=== PATIENT | female | born 1975 | race Caucasian/White ===

== ENCOUNTER 2022-05-27 01:26 | Observation (INO) | payer BC ==
[2022-05-27] MEDS ORDERED: MORPHINE SULFATE 4 MG/ML SYRINGE IV STA (02:23)
[2022-05-27] MEDS ORDERED: VANCOMYCIN IV PER PHARMACY 1 EACH MISC MISCELLANE PRN (02:25)
[2022-05-27] MEDS ORDERED: AMPICILLIN-SULBACTAM 3 GM in SODIUM CHLORIDE 0.9% 100 ML IVPB STA (02:25)
[2022-05-27] MEDS ORDERED: SODIUM CHLORIDE 0.9% 1,000 ML IV ONE (02:39)
[2022-05-27] MEDS ORDERED: VANCOMYCIN 1,750 MG in SODIUM CHLORIDE 0.9% 500 ML 500 ML IVPB ONE (02:45)
[2022-05-27 03:09] LABS: Basophils % (A) 0 %; Eosinophils # (A) 0.4 k/uL (0-0.7); Eosinophils % (A) 3 %; HCT 34.7 % (34.0-46.0); HGB 11.9 gm/dL (11.4-16.0); Lymphocytes # (A) 1.2 k/uL (1.0-4.8); Lymphocytes % (A) 8 %; MCH 32.2 pg (25.0-35.0); MCHC 34.4 g/dL (31.0-37.0); MCV 93.5 fL (80.0-100.0); Monocytes % (A) 7 %; Neutrophils # (A) 12.2 k/uL (1.3-7.7); Neutrophils % (A) 82 %; Platelet Count 439 k/uL (150-450); RBC 3.71 m/uL (3.80-5.40); RDW 13.2 % (11.5-15.5); WBC 14.9 k/uL (3.8-10.6)
[2022-05-27 03:19] LABS: ALT 14 U/L (4-34); AST 19 U/L (14-36); African American GFR (CKD) >90 (>60 ml/min/1.73 sqM); Albumin 3.6 g/dL (3.5-5.0); Alkaline Phosphatase 103 U/L (38-126); Anion Gap 9 mmol/L; Blood Urea Nitrogen 12 mg/dL (7-17); Calcium 8.8 mg/dL (8.4-10.2); Carbon Dioxide 28 mmol/L (22-30); Chloride 102 mmol/L (98-107); Glucose 126 mg/dL (74-99); Non-African American GFR(CKD) >90 (>60 ml/min/1.73 sqM); Potassium 3.2 mmol/L (3.5-5.1); Sodium 139 mmol/L (137-145); Total Bilirubin 0.2 mg/dL (0.2-1.3); Total Protein 6.6 g/dL (6.3-8.2)
[2022-05-27] MEDS: SODIUM CHLORIDE 0.9% 1,000 ML IV SCH ×3 (03:23→18:22)
[2022-05-27] MEDS ORDERED: MORPHINE SULFATE 4 MG/ML SYRINGE IV PRN (03:34)
[2022-05-27] MEDS ORDERED: NALOXONE 0.4 MG/ML 1 ML VIAL IV PRN (03:34)
[2022-05-27] MEDS ORDERED: KETOROLAC 15 MG/ML 1 ML VIAL IVP PRN (03:34)
--- NOTE | 2022-05-27 03:37 | ED ---
Skin/Abscess/FB HPI - General Source: patient Mode of arrival: ambulatory Limitations: no limitations <Peggy Bella - Last Filed: 05/27/22 04:44> <Ally Torre - Last Filed: 05/28/22 23:31> - General Chief complaint: Skin/Abscess/Foreign Body Stated complaint: lump/abscess on breast Time Seen by Provider: 05/27/22 02:08 - History of Present Illness Initial comments: Patient is a 47 y/o female presenting with CC of breast abscess. Patient noticed a bump to her breast a few days ago, she states that it grew quickly, she was seen by her PCP who started her on antibiotics yesterday. Patient states that today the abscess opened up and started draining. It is approximately 8 cm x 5 cm, located on the right breast. No fever or chills. No chest pain or difficulty breathing. No nausea or vomiting or abdominal pain. No numbness or tingling. Drainage is purulent, brown and foul smelling. (Peggy Bella) - Related Data Home Medications Medication Instructions Recorded Confirmed Cephalexin [Keflex] 500 mg PO BID 05/27/22 05/27/22 Allergies Allergy/AdvReac Type Severity Reaction Status Date / Time No Known Allergies Allergy Verified 05/27/22 06:52 Review of Systems ROS Other: All systems not noted in ROS Statement are negative. <Peggy Bella - Last Filed: 05/27/22 04:44> ROS Other: All systems not noted in ROS Statement are negative. <Ally Torre - Last Filed: 05/28/22 23:31> ROS Statement: Those systems with pertinent positive or pertinent negative responses have been documented in the HPI. Past Medical History Past Medical History: No Reported History History of Any Multi-Drug Resistant Organisms: None Reported Past Surgical History: Appendectomy, Section Past Psychological History: No Psychological Hx Reported Smoking Status: Current every day smoker Past Alcohol Use History: Occasional Past Drug Use History: None Reported <Peggy Bella - Last Filed: 05/27/22 04:44> General Exam Limitations: no limitations General appearance: alert, in no apparent distress Head exam: Present: atraumatic, normocephalic, normal inspection Eye exam: Present: normal appearance, PERRL, EOMI. Absent: scleral icterus, conjunctival injection, periorbital swelling Neck exam: Present: normal inspection Respiratory exam: Present: normal lung sounds bilaterally. Absent: respiratory distress, wheezes, rales, rhonchi, stridor Cardiovascular Exam: Present: regular rate, normal rhythm, normal heart sounds. Absent: systolic murmur, diastolic murmur, rubs, gallop, clicks Neurological exam: Present: alert, oriented X3, CN II-XII intact Psychiatric exam: Present: normal affect, normal mood Expanded Type of lesion: Present: abscess (Lateral right breast, measuring approximately 8 cm x 5 cm, actively draining purulent fluid) <Peggy Bella - Last Filed: 05/27/22 04:44> Course Vital Signs 05/27/22 05/27/22 05/27/22 01:37 02:12 03:42 Temperature 98.4 F 97.7 F Pulse Rate 115 H 100 78 Respiratory 18 16 16 Rate Blood Pressure 133/105 134/86 111/87 O2 Sat by Pulse 98 100 99 Oximetry 05/27/22 05/27/22 05/27/22 04:04 05:14 06:10 Temperature 98.1 F 97.9 F Pulse Rate 68 72 Respiratory 16 16 16 Rate Blood Pressure 116/66 111/79 O2 Sat by Pulse 99 98 Oximetry 05/27/22 05/27/22 05/27/22 06:23 07:07 11:00 Temperature Pulse Rate 73 72 Respiratory 16 16 18 Rate Blood Pressure 111/72 126/83 120/76 O2 Sat by Pulse 99 98 97 Oximetry 05/27/22 05/27/22 16:00 16:55 Temperature 98.5 F 98.5 F Pulse Rate 89 89 Respiratory 19 18 Rate Blood Pressure 121/83 124/90 O2 Sat by Pulse 99 97 Oximetry Medical Decision Making - Lab Data Result diagrams: 05/27/22 02:51 05/27/22 02:51 <Peggy Bella - Last Filed: 05/27/22 04:44> - Lab Data Result diagrams: 05/28/22 08:18 05/28/22 08:18 <Ally Torre - Last Filed: 05/28/22 23:31> - Medical Decision Making Patient is a 47-year-old female presenting with chief complaint of abscess to the right breast. Abscess began a few days ago, patient states he grew quickly. Patient started taking oral antibiotics yesterday, she states that today the abscess opened up and started draining. On examination the area is warm, with surrounding areas of induration. Brown foul-smelling drainage is present. WBC 14.9. Blood cultures and wound culture are taken, patient is started on vancomycin and Unasyn. Potassium is 3.2, provided oral replacement. Patient will be admitted for IV antibiotics and surgical consultation. I discussed this case with Dr. Templeton who agreed to admit the patient. Patient is agreeable with this plan. I discussed this case with my attending Dr. Torre. (Peggy Bella) - Lab Data Lab Results 05/27/22 05/27/22 05/27/22 Range/Units 02:51 02:51 02:51 WBC 14.9 H (3.8-10.6) k/uL RBC 3.71 L (3.80-5.40) m/uL Hgb 11.9 (11.4-16.0) gm/dL Hct 34.7 (34.0-46.0) % MCV 93.5 (80.0-100.0) fL MCH 32.2 (25.0-35.0) pg MCHC 34.4 (31.0-37.0) g/dL RDW 13.2 (11.5-15.5) % Plt Count 439 (150-450) k/uL MPV 8.0 Neutrophils % 82 % Lymphocytes % 8 % Monocytes % 7 % Eosinophils % 3 % Basophils % 0 % Neutrophils # 12.2 H (1.3-7.7) k/uL Lymphocytes # 1.2 (1.0-4.8) k/uL Monocytes # 1.0 (0-1.0) k/uL Eosinophils # 0.4 (0-0.7) k/uL Basophils # 0.0 (0-0.2) k/uL Sodium 139 (137-145) mmol/L Potassium 3.2 L (3.5-5.1) mmol/L Chloride 102 (98-107) mmol/L Carbon Dioxide 28 (22-30) mmol/L Anion Gap 9 mmol/L BUN 12 (7-17) mg/dL Creatinine 0.63 (0.52-1.04) mg/dL Est GFR (CKD-EPI)AfAm >90 (>60 ml/min/1.73 sqM) Est GFR (CKD-EPI)NonAf >90 (>60 ml/min/1.73 sqM) Glucose 126 H (74-99) mg/dL Estimated Ave Glu mg/dL Hemoglobin A1c (0.0-6.0) % Plasma Lactic Acid Dario 0.8 (0.7-2.0) mmol/L Calcium 8.8 (8.4-10.2) mg/dL Total Bilirubin 0.2 (0.2-1.3) mg/dL AST 19 (14-36) U/L ALT 14 (4-34) U/L Alkaline Phosphatase 103 (38-126) U/L Total Protein 6.6 (6.3-8.2) g/dL Albumin 3.6 (3.5-5.0) g/dL 05/27/22 Range/Units 02:51 WBC (3.8-10.6) k/uL RBC (3.80-5.40) m/uL Hgb (11.4-16.0) gm/dL Hct (34.0-46.0) % MCV (80.0-100.0) fL MCH (25.0-35.0) pg MCHC (31.0-37.0) g/dL RDW (11.5-15.5) % Plt Count (150-450) k/uL MPV Neutrophils % % Lymphocytes % % Monocytes % % Eosinophils % % Basophils % % Neutrophils # (1.3-7.7) k/uL Lymphocytes # (1.0-4.8) k/uL Monocytes # (0-1.0) k/uL Eosinophils # (0-0.7) k/uL Basophils # (0-0.2) k/uL Sodium (137-145) mmol/L Potassium (3.5-5.1) mmol/L Chloride (98-107) mmol/L Carbon Dioxide (22-30) mmol/L Anion Gap mmol/L BUN (7-17) mg/dL Creatinine (0.52-1.04) mg/dL Est GFR (CKD-EPI)AfAm (>60 ml/min/1.73 sqM) Est GFR (CKD-EPI)NonAf (>60 ml/min/1.73 sqM) Glucose (74-99) mg/dL Estimated Ave Glu mg/dL 112 Hemoglobin A1c 5.5 (0.0-6.0) % Plasma Lactic Acid Dario (0.7-2.0) mmol/L Calcium (8.4-10.2) mg/dL Total Bilirubin (0.2-1.3) mg/dL AST (14-36) U/L ALT (4-34) U/L Alkaline Phosphatase (38-126) U/L Total Protein (6.3-8.2) g/dL Albumin (3.5-5.0) g/dL Disposition Time of Disposition: 03:36 Decision to Admit Reason: Admit from EC Decision Date: 05/27/22 Decision Time: 03:36 <Peggy Bella - Last Filed: 05/27/22 04:44> <Ally Torre - Last Filed: 05/28/22 23:31> Clinical Impression: Breast abscess Disposition: ADMITTED IP TO THIS [facility] Condition: Fair
[2022-05-27] MEDS ORDERED: Potassium Replacement Protocol 1 EACH MISC MISCELLANE PRN (03:43)
[2022-05-27] MEDS: POTASSIUM CHLORIDE ER 20 MEQ TAB.ER PO SCH ×2 (04:03→05:14)
[2022-05-27] MEDS: AMPICILLIN-SULBACTAM 3 GM in SODIUM CHLORIDE 0.9% 100 ML IVPB SCH ×3 (09:53→21:56)
[2022-05-27] MEDS: VANCOMYCIN 1,750 MG in SODIUM CHLORIDE 0.9% 500 ML 500 ML IVPB SCH ×2 (11:27→18:20)
--- NOTE | 2022-05-27 13:58 | P.GSCN ---
History of Present Illness Consult date: 05/27/22 History of present illness: CHIEF COMPLAINT: Right breast abscess HISTORY OF PRESENT ILLNESS: This is a 47-year-old female who presents to the hospital with complaints of right breast abscess. She reports over the last 2 weeks she's had increase pain and swelling in the right breast. Initially she had a lump on the right breast that was red and painful. Over the last couple weeks she's had increased pain and redness. She reports seeing her PCP was started on oral antibiotics which she took 2 doses. I she continued to have increasing pain presented to the ER for further evaluation. Patient reports that the abscess did start to drain since being in the ER. The drainage has very foul odor. Patient does report decrease in pain since abscess started draining. Patient denies any fever chills or sweats. She has had a lumpectomy on her left breast. She denies any history of MRSA or diabetes. She is afebrile. Patient seen and examined with Dr. christie PAST MEDICAL HISTORY: See list. PAST SURGICAL HISTORY: See list. MEDICATIONS: See list. ALLERGIES: See list. SOCIAL HISTORY: No illicit drug use. REVIEW OF SYSTEMS: CONSTITUTIONAL: Denies fever or chills. HEENT: Denies blurred vision, vision changes, or eye pain. Denies hemoptysis CARDIOVASCULAR: Denies chest pain or pressure. RESPIRATORY: No shortness of breath. GASTROINTESTINAL: See HPI for pertinent findings HEMATOLOGIC: Denies bleeding disorders. GENITOURINARY: Denies any blood in urine or increased urinary frequency. SKIN: Denies pruitis. Denies rash. PHYSICAL EXAM: VITAL SIGNS: Reviewed GENERAL: Well-developed in no acute distress. HEENT: No sclera icterus. Extraocular movements grossly intact. Moist buccal mucosa. Head is atraumatic, normocephalic. No nasal drainage. ABDOMEN: Soft. Nondistended. Nontender NEUROLOGIC: Alert and oriented. Cranial nerves II through XII grossly intact. Skin: Right breast, area of induration then under side of the breast measuring about 5cm in lenth with purulent foul-smelling drainage. There is a small area of bruised skin where the drainage is expelling from. There is a large area of erythema mostly underside of the breast. It's warm and tender with palpation. LABORATORY DATA: WBC 14.9 Hgb 11.9 platelets 439 Sodium 139 potassium is 3.2 crit and serum 0.63 glucose 126 LFTs normal Culture pending IMAGING: ASSESSMENT: 1. Right breast abscess with cellulitis PLAN: -Continue to observe -Cellulitis area has been marked -Follow up on culture -Continue antibiotics -Continue supportive care Physician [employer] note has been reviewed by physician. Signing provider agrees with the documented findings, assessment, and plan of care. Past Medical History Past Medical History: No Reported History History of Any Multi-Drug Resistant Organisms: None Reported Past Surgical History: Appendectomy, Section Past Psychological History: No Psychological Hx Reported Smoking Status: Current every day smoker Past Alcohol Use History: Occasional Past Drug Use History: None Reported Medications and Allergies Home Medications Medication Instructions Recorded Confirmed Type Cephalexin [Keflex] 500 mg PO BID 05/27/22 05/27/22 History Allergies Allergy/AdvReac Type Severity Reaction Status Date / Time No Known Allergies Allergy Verified 05/27/22 06:52 Surgical - Exam Vital Signs Temp Pulse Resp BP Pulse Ox 98.4 F 115 H 18 133/105 98 05/27/22 01:37 05/27/22 01:37 05/27/22 01:37 05/27/22 01:37 05/27/22 01:37 Results - Labs 05/27/22 02:51 05/27/22 02:51 Abnormal Lab Results - Last 24 Hours (Table) 05/27/22 05/27/22 Range/Units 02:51 02:51 WBC 14.9 H (3.8-10.6) k/uL RBC 3.71 L (3.80-5.40) m/uL Neutrophils # 12.2 H (1.3-7.7) k/uL Potassium 3.2 L (3.5-5.1) mmol/L Glucose 126 H (74-99) mg/dL Diabetes panel 05/27/22 Range/Units 02:51 Sodium 139 (137-145) mmol/L Potassium 3.2 L (3.5-5.1) mmol/L Chloride 102 (98-107) mmol/L Carbon Dioxide 28 (22-30) mmol/L BUN 12 (7-17) mg/dL Creatinine 0.63 (0.52-1.04) mg/dL Glucose 126 H (74-99) mg/dL Calcium 8.8 (8.4-10.2) mg/dL AST 19 (14-36) U/L ALT 14 (4-34) U/L Alkaline Phosphatase 103 (38-126) U/L Total Protein 6.6 (6.3-8.2) g/dL Albumin 3.6 (3.5-5.0) g/dL Calcium panel 05/27/22 Range/Units 02:51 Calcium 8.8 (8.4-10.2) mg/dL Albumin 3.6 (3.5-5.0) g/dL Pituitary panel 05/27/22 Range/Units 02:51 Sodium 139 (137-145) mmol/L Potassium 3.2 L (3.5-5.1) mmol/L Chloride 102 (98-107) mmol/L Carbon Dioxide 28 (22-30) mmol/L BUN 12 (7-17) mg/dL Creatinine 0.63 (0.52-1.04) mg/dL Glucose 126 H (74-99) mg/dL Calcium 8.8 (8.4-10.2) mg/dL Adrenal panel 05/27/22 Range/Units 02:51 Sodium 139 (137-145) mmol/L Potassium 3.2 L (3.5-5.1) mmol/L Chloride 102 (98-107) mmol/L Carbon Dioxide 28 (22-30) mmol/L BUN 12 (7-17) mg/dL Creatinine 0.63 (0.52-1.04) mg/dL Glucose 126 H (74-99) mg/dL Calcium 8.8 (8.4-10.2) mg/dL Total Bilirubin 0.2 (0.2-1.3) mg/dL AST 19 (14-36) U/L ALT 14 (4-34) U/L Alkaline Phosphatase 103 (38-126) U/L Total Protein 6.6 (6.3-8.2) g/dL Albumin 3.6 (3.5-5.0) g/dL
--- NOTE | 2022-05-27 14:38 | P.HPIM ---
History of Present Illness H&P Date: 05/27/22 Chief Complaint: Right breast abscess draining This is a 47-year-old female presented to the ER with complaints of right breast abscess-draining. Reports she noticed it a couple weeks ago, established a primary physician last week-had not seen a doctor in years, started on a ntibiotics, breast site became more swollen with increased redness and edemawith drainage starting on arrival to ER. Denies nausea vomiting or diarrhea. Denies abdominal pain. Denies headache. Denies pain. Past medical history includes left lumpectomy, ongoing nicotine dependence, obesity and multiple other medical issues. Denies history of diabetes mellitus, CAD/TX/hypertension, CVA/TIA. A febrile, WBC 14.9. Lactic acid 0.8. Glucose 126. Wound and blood cultures obtained. Vancomycin and Unasyn initiated. Potassium 3.2. Renal function stable. Denies chest pain, palpitations or shortness of breath. Past Medical History Past Medical History: No Reported History History of Any Multi-Drug Resistant Organisms: None Reported Past Surgical History: Appendectomy, Section Past Psychological History: No Psychological Hx Reported Smoking Status: Current every day smoker Past Alcohol Use History: Occasional Past Drug Use History: None Reported Medications and Allergies Home Medications Medication Instructions Recorded Confirmed Type Cephalexin [Keflex] 500 mg PO BID 05/27/22 05/27/22 History Allergies Allergy/AdvReac Type Severity Reaction Status Date / Time No Known Allergies Allergy Verified 05/27/22 06:52 Physical Exam Vitals: Vital Signs Temp Pulse Resp BP Pulse Ox 05/27/22 11:00 72 18 120/76 97 05/27/22 07:07 73 16 126/83 98 05/27/22 06:23 16 111/72 99 05/27/22 06:10 16 05/27/22 05:14 97.9 F 72 16 111/79 98 05/27/22 04:04 98.1 F 68 16 116/66 99 05/27/22 03:42 78 16 111/87 99 05/27/22 02:12 97.7 F 100 16 134/86 100 05/27/22 01:37 98.4 F 115 H 18 133/105 98 Intake and Output 05/26/22 05/27/22 05/27/22 22:59 06:59 14:59 Other: Weight 108.862 kg PHYSICAL EXAM: VITAL SIGNS: [As above] GENERAL: Sitting up in bed, no acute distress HEENT: Conjunctivae normal. eyes normal. NECK: No JVD. No thyroid enlargement. No LNs CARDIOVASCULAR: S1, S2 regular. No murmur RESPIRATION: Breath sounds diminished in the bases. No rhonchi or crackles. No bronchial breathing. ABDOMEN: Soft, nontender . No guarding. no masses palpable. No ascites, No hepatosplenomegaly.Bowel sounds heard. LEGS: No edema. no swelling PSYCHIATRY: Alert and oriented X3, mood and affect normal. NERVOUS SYSTEM: Cranial N 2-12 grossly normal. No focal deficits. Strength and sensation grossly intact.. Skin: Right lateral breast, tender, reddened, positive induration and fluctuance with purulent foul-smelling drainage. Refer to nursing wound measurement documentation. Results CBC & Chem 7: 05/27/22 02:51 05/27/22 02:51 Labs: Abnormal Lab Results - Last 24 Hours (Table) 05/27/22 05/27/22 Range/Units 02:51 02:51 WBC 14.9 H (3.8-10.6) k/uL RBC 3.71 L (3.80-5.40) m/uL Neutrophils # 12.2 H (1.3-7.7) k/uL Potassium 3.2 L (3.5-5.1) mmol/L Glucose 126 H (74-99) mg/dL Microbiology - Last 24 Hours (Table) 05/27/22 02:51 Wound Culture - Preliminary Breast - Right Assessment and Plan Assessment: Right breast abscess with cellulitis Hypokalemia Ongoing nicotine dependence Obesity, BMI 35.4 Plan: Continue on current medication regime ,monitoring and symptomatic treatment. Maintain IV antibiotics, cultures in progress with infectious diseas e and general surgery consult in place. Potassium replacement as per protocol ordered. Nicotine cessation reinforced. Hemoglobin A1c ordered. The impression and plan of care has been dictated as directed. : I performed a history and examination of this patient, discussed the same with the dictator. I agree with the dictator's note ,documented as a scribe. Any additional findings or plans will be noted.
[2022-05-27] MEDS: PANTOPRAZOLE 40 MG/10 ML VIAL IVP SCH (15:55)
[2022-05-28] MEDS: VANCOMYCIN 1,750 MG in SODIUM CHLORIDE 0.9% 500 ML 500 ML IVPB SCH ×2 (01:32→10:39)
[2022-05-28] MEDS: AMPICILLIN-SULBACTAM 3 GM in SODIUM CHLORIDE 0.9% 100 ML IVPB SCH ×4 (03:46→21:01)
[2022-05-28] MEDS: SODIUM CHLORIDE 0.9% 1,000 ML IV SCH ×3 (03:46→18:23)
[2022-05-28 08:38] LABS: Basophils % (A) 0 %; Eosinophils # (A) 0.2 k/uL (0-0.7); Eosinophils % (A) 2 %; HCT 32.8 % (34.0-46.0); HGB 10.8 gm/dL (11.4-16.0); Hypochromasia Slight; Lymphocytes # (A) 1.3 k/uL (1.0-4.8); Lymphocytes % (A) 15 %; MCH 31.1 pg (25.0-35.0); MCV 94.4 fL (80.0-100.0); Mean Platelet Volume 8.4; Monocytes # (A) 0.6 k/uL (0-1.0); Monocytes % (A) 7 %; Neutrophils # (A) 6.5 k/uL (1.3-7.7); Neutrophils % (A) 75 %; Platelet Count 412 k/uL (150-450); RBC 3.47 m/uL (3.80-5.40); RDW 13.1 % (11.5-15.5); WBC 8.8 k/uL (3.8-10.6)
[2022-05-28] MEDS ORDERED: VANCOMYCIN TROUGH DUE 1 EACH MISC MISCELLANE ONE (09:00)
--- NOTE | 2022-05-28 09:05 | P.CONS ---
History of Present Illness - Reason for Consult Consult date: 05/27/22 Breast abscess Requesting physician: Rachel Ochoa - Chief Complaint Right breast pain and swelling x few days - History of Present Illness Patient is a 47-year-old female presented to the hospital earlier this morning for evaluation of right breast swelling and redness patient mention she noticed a bump on her right breast few days ago that has quickly gotten bigger in size patient was evaluated by her primary care physician yesterday and started on oral Keflex twice a day however the patient mention her area becoming more swollen red opened up and started to drain patient be complaining of pain to the right breast area dull aching to throbbing intensity is almost 7-8 out of 10 and no radiation with associated swelling redness and some foul-smelling d rainage with the symptom the patient present to the hospital on arrival to the ER the patient was afebrile and no fever has been recorded subsequently patient did have white count of 14.9 with a left shift creatinine has been normal liver enzymes are normal blood and local culture has been obtained which are currently pending patient was started on vancomycin and Unasyn infectious disease was cons ulted for further management of antibiotic therapy Review of Systems Positive point has been mentioned in the HPI rest of the systems are negative Past Medical History Past Medical History: No Reported History History of Any Multi-Drug Resistant Organisms: None Reported Past Surgical History: Appendectomy, Section Past Psychological History: No Psychological Hx Reported Smoking Status: Current every day smoker Past Alcohol Use History: Occasional Past Drug Use History: None Reported Medications and Allergies Home Medications Medication Instructions Recorded Confirmed Type Amoxic-Pot Clav 875-125Mg 1 tab PO BID 14 Days #28 tab 05/29/22 Rx [Augmentin 875-125] Allergies Allergy/AdvReac Type Severity Reaction Status Date / Time No Known Allergies Allergy Verified 05/27/22 06:52 Physical Exam Vitals: Vital Signs Temp Pulse Resp BP Pulse Ox 05/27/22 11:00 72 18 120/76 97 05/27/22 07:07 73 16 126/83 98 05/27/22 06:23 16 111/72 99 05/27/22 06:10 16 05/27/22 05:14 97.9 F 72 16 111/79 98 05/27/22 04:04 98.1 F 68 16 116/66 99 05/27/22 03:42 78 16 111/87 99 05/27/22 02:12 97.7 F 100 16 134/86 100 05/27/22 01:37 98.4 F 115 H 18 133/105 98 Intake and Output 05/27/22 05/27/22 05/27/22 06:59 14:59 22:59 Other: Weight 108.862 kg GENERAL DESCRIPTION: Middle-aged female lying in bed, no distress. No tachypnea or accessory muscle of respiration use. HEENT: Shows Pallor , no scleral icterus. Oral mucous membrane is dry. No pharyngeal erythema or thrush NECK: Trachea central, no thyromegaly. LUNGS: Unlabored breathing. Clear to auscultation anteriorly. No wheeze or crackle. HEART: S1, S2, regular rate and rhythm. No loud murmur ABDOMEN: Soft, no tenderness , guarding or rigidity, no organomegaly EXTREMITIES: No edema of feet. SKIN: No rash, no masses palpable. Right breast is swollen and red and ind urated with some drainage NEUROLOGICAL: The patient is awake, alert, oriented x3, mood and affect normal. Results CBC & Chem 7: 05/29/22 05:30 05/29/22 05:30 Labs: Abnormal Lab Results - Last 24 Hours (Table) 05/27/22 05/27/22 Range/Units 02:51 02:51 WBC 14.9 H (3.8-10.6) k/uL RBC 3.71 L (3.80-5.40) m/uL Neutrophils # 12.2 H (1.3-7.7) k/uL Potassium 3.2 L (3.5-5.1) mmol/L Glucose 126 H (74-99) mg/dL Microbiology - Last 24 Hours (Table) 05/27/22 02:51 Wound Culture - Preliminary Breast - Right Assessment and Plan (1) Breast abscess Status: Acute Code(s): N61.1 - ABSCESS OF THE BREAST AND NIPPLE SNOMED Code(s): 60062947 Plan: 1patient present to hospital right breast pain swelling redness and drainage c oncerning for right breast abscess with spontaneous drainage will need to cover for the gram-positive skin jed to be the likely pathogen. 2ultrasound of the right breast may showed evidence of any residual abscess that may need to be drained surgically. 3patient to continue with Unasyn and vancomycin while waiting for the culture to finalize.. 4Marked area of the redness We will follow on clinical condition and cultures to further adjust medication if needed Thank you for this consultation will follow this patient along with you Time with Patient: Greater than 30
[2022-05-28] MEDS: PANTOPRAZOLE 40 MG/10 ML VIAL IVP SCH (09:35)
--- NOTE | 2022-05-28 10:35 | P.PN ---
Subjective Progress Note Date: 05/28/22 CHIEF COMPLAINT: Right breast abscess HISTORY OF PRESENT ILLNESS: Patient reports improvement in her pain. She continues to have drainage from the right breast abscess. She reports that the drainage is more clear in color. WBC has normalized from 14.9-8.8. Culture pending. Patient seen by infectious disease they have ordered a breast ultrasound. Patient seen and examined with Dr. Kingston PHYSICAL EXAM: VITAL SIGNS: Reviewed. GENERAL: Well-developed in no acute distress. HEENT: No sclera icterus. Extraocular movements grossly intact. Moist buccal mucosa. Head is atraumatic, normocephalic. ABDOMEN: Soft. Nondistended. Nontender. NEUROLOGIC: Alert and oriented. Cranial nerves II through XII grossly intact. Breast exam: Right pressed decreased erythema. Decreased area of induration. Purulent drainage still noted. Decrease with tenderness to palpation. ASSESSMENT: 1. Right breast abscess with cellulitis PLAN: -Continue to monitor -Continue antibiotics -Follow up on ultrasound results -Continue supportive care -Encourage patient to shower Physician Scan Coordinator note has been reviewed by physician. Signing provider agrees with the documented findings, assessment, and plan of care. Objective - Vital Signs Vital signs: Vital Signs Temp 98.3 F 05/28/22 07:00 Pulse 79 05/28/22 07:00 Resp 16 05/28/22 07:00 BP 136/77 05/28/22 07:00 Pulse Ox 97 05/28/22 07:00 FiO2 Intake & Output 05/27/22 05/28/22 05/28/22 18:59 06:59 18:59 Intake Total 600 163 Balance 600 163 Weight 108.862 kg Intake: Intake, IV Titration 600 Amount Ampicillin-Sulbactam 3 gm 100 In Sodium Chloride 0.9% 100 ml @ 200 mls/hr IVPB Q6H ANGELA Rx#:[id number] Vancomycin 1,750 mg In 500 Sodium Chloride 0.9% 500 ml 500 ml @ 167 mls/hr IVPB Q8H ANGELA Rx#: [id number] Oral 163 Other: Voiding Method Toilet - Labs CBC & Chem 7: 05/28/22 08:18 05/27/22 02:51 Labs: Abnormal Lab Results - Last 24 Hours (Table) 05/28/22 Range/Units 08:18 RBC 3.47 L (3.80-5.40) m/uL Hgb 10.8 L (11.4-16.0) gm/dL Hct 32.8 L (34.0-46.0) % Microbiology - Last 24 Hours (Table) 05/27/22 02:51 Blood Culture - Preliminary Blood No Growth after 24 hours 05/27/22 02:51 Blood Culture - Preliminary Blood No Growth after 24 hours 05/27/22 02:51 Gram Stain - Preliminary Breast - Right Wound Culture - Preliminary
--- NOTE | 2022-05-28 10:59 | USB ---
Reason for Exam: Clinical finding. Patient History: Menarche at age 14. First Full-Term at age 21. Right ovary removed at age 23. 12/10/2009, Excisional Biopsy on the Left side. Maternal grandmother had breast cancer. Maternal aunt had breast cancer. Risk Values: Radha 5 year model risk: 1.1%. NCI Lifetime model risk: 10.2%. Technique: Method: Whole Breast Handheld. Prior Study Comparison: 10/29/2009 Bilateral Diagnostic Mammogram, [facility]. Findings: The whole breast of the right breast, the axilla of the right breast and the retroareolar of the right breast were scanned. A complete US of all four quadrants of the breast, axilla, and retro-areolar region were reviewed. There is extensive edematous change involving both the skin and underlying breast parenchyma along the inferior half of the breast. A wound is noted extending to the skin surface particularly at the 7 and 8:00 positions. No focal abnormal fluid collection is seen. There is a small amount of poorly defined fluid in the subareolar region. A thickened axillary lymph node with cortex measuring up to 6 mm is probably reactive. The lymph node is borderline enlarged measuring 1.9 x 1.5 x 1.2 cm. Overall Assessment: Probably benign, BI-RAD 3 Management: Diagnostic Breast Ultrasound of the right breast in 1 month. 1. To reassess the breast changes and right axillary lymph node following additional antibiotic therapy for suspected infectious etiology. There is no discrete mass seen on ultrasound to support an inflammatory breast cancer at this time. 2. Following successful treatment, bilateral diagnostic mammograms are recommended. 3. Patient should continue monthly self breast exams. These results should not preclude additional follow-up of suspicious palpable abnormalities. Results were given to the patient verbally at the time of exam. Electronically signed and approved by: Caterina Nayak M.D. Radiologist
[2022-05-28 13:12] LABS: African American GFR (CKD) 128.8 (60.0-200.0); Anion Gap 10.3 mmol/L (10.00-18.00); BUN/Creat Ratio 9.53 Ratio (12.00-20.00); Blood Urea Nitrogen 5.4 mg/dL (9.0-27.0); Calcium 8.4 mg/dL (8.7-10.3); Non-African American GFR(CKD) 111.1 (60.0-200.0); Potassium 3.4 mmol/L (3.5-5.5)
[2022-05-28] MEDS ORDERED: Potassium Replacement Protocol 1 EACH MISC MISCELLANE PRN (14:59)
--- NOTE | 2022-05-28 15:05 | P.PN ---
Subjective Progress Note Date: 05/28/22 H&P Date: 05/27/22 Chief Complaint: Right breast abscess draining This is a 47-year-old female presented to the ER with complaints of right breast abscess-draining. Reports she noticed it a couple weeks ago, established a primary physician last week-had not seen a doctor in years, started on antibiotics, breast site became more swollen with increased redness and edemawith drainage starting on arrival to ER. Denies nausea vomiting or diarrhea. Denies abdominal pain. Denies headache. Denies pain. Past medical history includes left lumpectomy, ongoing nicotine dependence, obesity and multiple other medical issues. Denies history of diabetes mellitus, CAD/[place]/hypertension, CVA/TIA. Afebrile, WBC 14.9. Lactic acid 0.8. Glucose 126. Wound and blood cultures obtained. Vancomycin and Unasyn initiated. Potassium 3.2. Renal function stable. Denies chest pain, palpitations or shortness of breath. 05/28/2022 Evaluated by infectious disease, continues on Unasyn and vancomycin. Renal function stable. Afebrile, normal WBC. Potassium 3.4. Breast ultrasound pending. Denies chest pain, palpitations or shortness of breath. A1c 5.5. Objective - Vital Signs Vital signs: Vital Signs Temp 98.5 F 05/28/22 13:48 Pulse 80 05/28/22 13:48 Resp 18 05/28/22 13:48 BP 128/82 05/28/22 13:48 Pulse Ox 98 05/28/22 13:48 FiO2 Intake & Output 05/27/22 05/28/22 05/28/22 18:59 06:59 18:59 Intake Total 600 326 Balance 600 326 Weight 108.862 kg Intake: Intake, IV Titration 600 Amount Ampicillin-Sulbactam 3 gm 100 In Sodium Chloride 0.9% 100 ml @ 200 mls/hr IVPB Q6H [facility] Rx#:[id number] Vancomycin 1,750 mg In 500 Sodium Chloride 0.9% 500 ml 500 ml @ 167 mls/hr IVPB Q8H [facility] Rx#: [id number] Oral 326 Other: Voiding Method Toilet # Voids 2 - Exam PHYSICAL EXAM: VITAL SIGNS: [As above] GENERAL: Sitting up in bed, no acute distress HEENT: Conjunctivae normal. eyes normal. NECK: No JVD. No thyroid enlargement. No LNs CARDIOVASCULAR: S1, S2 regular. No murmur RESPIRATION: Breath sounds diminished in the bases. No rhonchi or crackles. ABDOMEN: Soft, nontender . No guarding. no masses palpable. LEGS: No edema. no swelling. PSYCHIATRY: Alert and oriented X3, mood and affect normal. NERVOUS SYSTEM: Cranial N 2-12 grossly normal. No focal deficits. Strength and sensation grossly intact. Skin: Right lateral breast, tender, less reddened, less induration with minimal clearer drainage. - Labs CBC & Chem 7: 05/28/22 08:18 05/28/22 08:18 Labs: Abnormal Lab Results - Last 24 Hours (Table) 05/28/22 05/28/22 Range/Units 08:18 08:18 RBC 3.47 L (3.80-5.40) m/uL Hgb 10.8 L (11.4-16.0) gm/dL Hct 32.8 L (34.0-46.0) % Potassium 3.4 L (3.5-5.5) mmol/L BUN 5.4 L (9.0-27.0) mg/dL BUN/Creatinine Ratio 9.53 L (12.00-20.00) Ratio Calcium 8.4 L (8.7-10.3) mg/dL Microbiology - Last 24 Hours (Table) 05/27/22 02:51 Blood Culture - Preliminary Blood No Growth after 24 hours 05/27/22 02:51 Blood Culture - Preliminary Blood No Growth after 24 hours 05/27/22 02:51 Gram Stain - Preliminary Breast - Right Wound Culture - Preliminary Assessment and Plan Assessment: Right breast abscess with cellulitis Hypokalemia Ongoing nicotine dependence Obesity, BMI 35.4 Plan: Continue on current medication regime ,monitoring and symptomatic treatment. Maintain IV antibiotics, cultures in progress with infectious disease and general surgery following. Potassium replacement as per protocol ordered. Magnesium level added on .Nicotine cessation reinforced. The impression and plan of care has been dictated as directed. : I performed a history and examination of this patient, discussed the same with the dictator. I agree with the dictator's note ,documented as a scribe. Any additional findings or plans will be noted.
[2022-05-28] MEDS: VANCOMYCIN 1,500 MG in SODIUM CHLORIDE 0.9% 500 ML 500 ML IVPB SCH (20:59)
--- NOTE | 2022-05-28 23:23 | P.PN ---
Subjective Progress Note Date: 05/28/22 Principal diagnosis: Right breast abscess and cellulitis Patient is a 47 year old female presented to hospital with right breast pain swelling redness and spontaneous drainage of an abscess failing outpatient oral Therapy On today's evaluation and that is 05/28/2022, the patient denies having any fever or chills, the patient denies having any chest pain or shortness of breath or cough no abdominal pain or diarrhea right breast pain and swelling slightly decreased Objective - Vital Signs Vital signs: Vital Signs Temp 98.3 F 05/28/22 07:00 Pulse 79 05/28/22 07:00 Resp 16 05/28/22 07:00 BP 136/77 05/28/22 07:00 Pulse Ox 97 05/28/22 07:00 FiO2 Intake & Output 05/27/22 05/28/22 05/28/22 18:59 06:59 18:59 Intake Total 600 163 Balance 600 163 Weight 108.862 kg Intake: Intake, IV Titration 600 Amount Ampicillin-Sulbactam 3 gm 100 In Sodium Chloride 0.9% 100 ml @ 200 mls/hr IVPB Q6H [facility] Rx#:[id number] Vancomycin 1,750 mg In 500 Sodium Chloride 0.9% 500 ml 500 ml @ 167 mls/hr IVPB Q8H [facility] Rx#: [id number] Oral 163 Other: Voiding Method Toilet - Exam GENERAL DESCRIPTION: Male age female lying in bed in no distress RESPIRATORY SYSTEM: Unlabored breathing , decreased breath sounds at bases HEART: S1 S2 regular rate and rhythm , ABDOMEN: Soft , no tenderness EXTREMITIES: No edema feet - Labs CBC & Chem 7: 05/28/22 08:18 05/28/22 08:18 Labs: Abnormal Lab Results - Last 24 Hours (Table) 05/28/22 Range/Units 08:18 RBC 3.47 L (3.80-5.40) m/uL Hgb 10.8 L (11.4-16.0) gm/dL Hct 32.8 L (34.0-46.0) % Microbiology - Last 24 Hours (Table) 05/27/22 02:51 Blood Culture - Preliminary Blood No Growth after 24 hours 05/27/22 02:51 Blood Culture - Preliminary Blood No Growth after 24 hours 05/27/22 02:51 Gram Stain - Preliminary Breast - Right Wound Culture - Preliminary Assessment and Plan (1) Breast abscess Current Visit: Yes Status: Acute Code(s): N61.1 - ABSCESS OF THE BREAST AND NIPPLE SNOMED Code(s): 10334791 Plan: 1patient present to hospital right breast pain swelling redness and drainage concerning for right breast abscess with spontaneous drainage will need to cover for the gram-positive skin jed to be the likely pathogen. 2ultrasound of the right breast is currently pending and local cultures are pending as well. 3patient to continue with Unasyn and vancomycin while waiting for the culture to finalize.. Time with Patient: Less than 30
[2022-05-29] MEDS: SODIUM CHLORIDE 0.9% 1,000 ML IV SCH ×2 (02:22→09:16)
[2022-05-29] MEDS: AMPICILLIN-SULBACTAM 3 GM in SODIUM CHLORIDE 0.9% 100 ML IVPB SCH ×3 (02:23→13:13)
[2022-05-29] MEDS: VANCOMYCIN 1,500 MG in SODIUM CHLORIDE 0.9% 500 ML 500 ML IVPB SCH ×2 (04:11→13:07)
[2022-05-29 08:32] VITALS: BP 145/91; PULSE 82; RESP 16; TEMP 98.6
[2022-05-29 08:42] LABS: Basophils # (A) 0.04 X 10*3/uL (0.00-0.10); Basophils % (A) 0.5 %; Eosinophils # (A) 0.26 X 10*3/uL (0.04-0.35); Eosinophils % (A) 3.1 %; HCT 31.6 % (37.2-46.3); HGB 10.1 g/dL (12.0-15.0); Immature Grans, Automated 0.5 %; Lymphocytes # (A) 1.45 X 10*3/uL (0.90-5.00); Lymphocytes % (A) 17.1 %; MCH 30.1 pg (27.0-32.0); Mean Platelet Volume 10.4 fL (9.5-12.2); Monocytes # (A) 0.89 X 10*3/uL (0.20-1.00); Monocytes % (A) 10.5 %; NRBC Per 100 WBC 0 /100 WBCS (0.0-0.0); Neutrophils # (A) 5.78 X 10*3/uL (1.80-7.70); Neutrophils % (A) 68.3 %; Platelet Count 403 X 10*3/uL (140-440); RBC 3.36 X 10*6/uL (4.10-5.20); RDW 13.5 % (11.5-14.5); WBC 8.46 X 10*3/uL (4.50-10.00)
[2022-05-29 08:55] LABS: African American GFR (CKD) 126.7 (60.0-200.0); Anion Gap 8.7 mmol/L (10.00-18.00); BUN/Creat Ratio 6.67 Ratio (12.00-20.00); Calcium 8.4 mg/dL (8.7-10.3); Carbon Dioxide 27.3 mmol/L (20.0-27.5); Non-African American GFR(CKD) 109.3 (60.0-200.0); Potassium 3.7 mmol/L (3.5-5.5)
[2022-05-29] MEDS: PANTOPRAZOLE 40 MG/10 ML VIAL IVP SCH (09:16)
--- NOTE | 2022-05-29 10:22 | P.PN ---
Subjective Progress Note Date: 05/29/22 CHIEF COMPLAINT: Right breast abscess HISTORY OF PRESENT ILLNESS: Patient's right breast abscess is improving. Patient still having drainage. There is decreased erythema. She denies any pain. Denies any nausea or vomiting. Afebrile. Culture results showing gram- positive cocci and gram-positive bacilli. WBC 8.46 Patient seen and examined with Dr. Kingston PHYSICAL EXAM: VITAL SIGNS: Reviewed. GENERAL: Well-developed in no acute distress. HEENT: No sclera icterus. Extraocular movements grossly intact. Moist buccal mucosa. Head is atraumatic, normocephalic. ABDOMEN: Soft. Nondistended. Nontender. NEUROLOGIC: Alert and oriented. Cranial nerves II through XII grossly intact. Breast exam: Right breast decreased erythema and swelling and induration. Purulent to clear drainage still present. ASSESSMENT: 1. 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 Signing provider agrees with the documented findings, assessment, and plan of care. Objective - Vital Signs Vital signs: Vital Signs Temp 98.6 F 05/29/22 07:00 Pulse 82 05/29/22 07:00 Resp 16 05/29/22 07:00 BP 145/91 05/29/22 07:00 Pulse Ox 97 05/29/22 07:00 FiO2 Intake & Output 05/28/22 05/29/22 05/29/22 18:59 06:59 18:59 Intake Total 326 163 Balance 326 163 Intake: Oral 326 163 Other: Voiding Method Toilet # Voids 2 1 - Labs CBC & Chem 7: 05/29/22 05:30 05/29/22 05:30 Labs: Abnormal Lab Results - Last 24 Hours (Table) 05/28/22 05/29/22 05/29/22 Range/Units 08:18 05:30 05:30 RBC 3.36 L (4.10-5.20) X 10*6/uL Hgb 10.1 L (12.0-15.0) g/dL Hct 31.6 L (37.2-46.3) % Potassium 3.4 L (3.5-5.5) mmol/L Anion Gap 8.70 L (10.00-18.00) mmol/L BUN 5.4 L 4.0 L (9.0-27.0) mg/dL BUN/Creatinine Ratio 9.53 L 6.67 L (12.00-20.00) Ratio Calcium 8.4 L 8.4 L (8.7-10.3) mg/dL Microbiology - Last 24 Hours (Table) 05/27/22 02:51 Blood Culture - Preliminary Blood No Growth after 48 hours 05/27/22 02:51 Blood Culture - Preliminary Blood No Growth after 48 hours
--- NOTE | 2022-05-29 15:12 | P.PN ---
Subjective Progress Note Date: 05/29/22 Principal diagnosis: Right breast abscess and cellulitis Patient is a 47 year old female presented to hospital with right breast pain swelling redness and spontaneous drainage of an abscess failing outpatient oral Therapy On today's evaluation and that is 05/29/2022, the patient remains to be afebrile, the patient denies having any chest pain or shortness of breath or cough no abdominal pain or diarrhea , the patient right breast pain and swelling has improved and no further drainage Objective - Vital Signs Vital signs: Vital Signs Temp 98.6 F 05/29/22 07:00 Pulse 82 05/29/22 07:00 Resp 16 05/29/22 07:00 BP 145/91 05/29/22 07:00 Pulse Ox 97 05/29/22 07:00 FiO2 Intake & Output 05/28/22 05/29/22 05/29/22 18:59 06:59 18:59 Intake Total 326 163 Balance 326 163 Intake: Oral 326 163 Other: Voiding Method Toilet # Voids 2 1 - Exam GENERAL DESCRIPTION: Male age female lying in bed in no distress RESPIRATORY SYSTEM: Unlabored breathing , decreased breath sounds at bases HEART: S1 S2 regular rate and rhythm , Right breast swelling redness and induration has significantly improved no drai nage ABDOMEN: Soft , no tenderness EXTREMITIES: No edema feet - Labs CBC & Chem 7: 05/29/22 05:30 05/29/22 05:30 Labs: Abnormal Lab Results - Last 24 Hours (Table) 05/28/22 05/29/22 05/29/22 Range/Units 08:18 05:30 05:30 RBC 3.36 L (4.10-5.20) X 10*6/uL Hgb 10.1 L (12.0-15.0) g/dL Hct 31.6 L (37.2-46.3) % Potassium 3.4 L (3.5-5.5) mmol/L Anion Gap 8.70 L (10.00-18.00) mmol/L BUN 5.4 L 4.0 L (9.0-27.0) mg/dL BUN/Creatinine Ratio 9.53 L 6.67 L (12.00-20.00) Ratio Calcium 8.4 L 8.4 L (8.7-10.3) mg/dL Microbiology - Last 24 Hours (Table) 05/27/22 02:51 Gram Stain - Final Breast - Right Wound Culture - Final 05/27/22 02:51 Blood Culture - Preliminary Blood No Growth after 48 hours 05/27/22 02:51 Blood Culture - Preliminary Blood No Growth after 48 hours Assessment and Plan (1) Breast abscess Status: Acute Code(s): N61.1 - ABSCESS OF THE BREAST AND NIPPLE SNOMED Code(s): 35954248 Plan: 1patient present to hospital right breast pain swelling redness and drainage c oncerning for right breast abscess with spontaneous drainage will need to cover for the gram-positive skin jed to be the likely pathogen. 2ultrasound of the right breast did not show any residual abscess 3patient culture has been negative so far blood cultures negative patient is feeling better wants to go home antibiotic will be switched over to oral Augmentin 10 day prescription was sent to the pharmacy, close outpatient follow-up Time with Patient: Less than 30
--- NOTE | 2022-05-29 17:17 | P.DS ---
Providers Date of admission: 05/27/22 04:18 Expected date of discharge: 05/29/22 Attending physician: Les Templeton MD Consults: 05/27/22 03:34 Consult Physician Urgent Consulting Provider: Solitario Kingston Consult Reason/Comments: breast abscess Do you want consulting provider notified?: Yes 05/27/22 12:35 Consult Physician Routine Consulting Provider: Mitra Fields Consult Reason/Comments: breast abscess Do you want consulting provider notified?: Yes Primary care physician: Delmi Jameson Hospital Course: Final Diagnoses: Right breast abscess with cellulitis Hypokalemia Ongoing nicotine dependence Obesity, BMI 35.4 Hospital course:This is a 47-year-old female presented to the ER with complaints of right breast abscess-draining. Reports she noticed it a couple weeks ago, established a primary physician last week-had not seen a doctor in years, started on antibiotics, breast site became more swollen with increased redness and edemawith drainage starting on arrival to ER. Denies nausea vomiting or diarrhea. Denies abdominal pain. Denies headache. Denies pain. Past medical history includes left lumpectomy, ongoing nicotine dependence, obesity and mul tiple other medical issues. Denies history of diabetes mellitus, CAD/[place]/hypertension, CVA/TIA. Afebrile, WBC 14.9. Lactic acid 0.8. Glucose 126. Wound and blood cultures obtained. Vancomycin and Unasyn initiated. Potassium 3.2. Renal function stable. Denies chest pain, palpitations or shortness of breath. 05/28/2022 Evaluated by infectious disease, continues on Unasyn and vancomycin. Renal function stable. Afebrile, normal WBC. Potassium 3.4. Breast ultrasound pending. Denies chest pain, palpitations or shortness of breath. A1c 5.5. Maintained on IV antibiotics, cultures in progress with infectious disease and general surgery following. Potassium replacement as per protocol ordered. Magnesium level added on .Nicotine cessation reinforced. Breast ultrasound reporting no discrete mass , thoracic and axillary lymph node with cortex measuring up to 6 mm-probably reactive, the lymph node is borderline enlarged measuring 1.9 x 1.5 x 1.2 cm; with outpatient bilateral diagnostic mammograms recommended following successful treatment. Right breast swelling, redness and induration significantly improved with minimal clear drainage. Cultures reporting negative thus far. Afebrile, normal WBC . Denies chest pain, palpitations or shortness of breath. Denies lightheadedness, dizziness or focal deficits. Significant clinical improvement. Patient will be discharged home today in a stable condition with guarded prognosis pending final DC recommendations and clearance prior both general surgery and infectious disease. Microbiology 05/27/22 02:51 Breast - Right Gram Stain - Final 05/27/22 02:51 Breast - Right Wound Culture - Final 05/27/22 02:51 Blood Blood Culture - Preliminary No Growth after 48 hours 05/27/22 02:51 Blood Blood Culture - Preliminary No Growth after 48 hours The impression and plan of care has been dictated as directed. : I performed a history and examination of this patient, discussed the same with the dictator. I agree with the dictator's note ,documented as a scribe. Any additional findings or plans will be noted. Patient Condition at Discharge: Stable Plan - Discharge Summary Discharge Rx Participant: No New Discharge Prescriptions: New Amoxic-Pot Clav 875-125Mg [Augmentin 875-125] 1 tab PO BID 14 Days #28 tab Discontinued Cephalexin [Keflex] 500 mg PO BID Discharge Medication List Amoxic-Pot Clav 875-125Mg [Augmentin 875-125] 1 tab PO BID 14 Days #28 tab 05/29/22 [Rx] Follow up Appointment(s)/Referral(s): Les Templeton MD [STAFF PHYSICIAN] - 1 Week Mitra Fields MD [STAFF PHYSICIAN] - 06/15/22 2:45 pm Solitario Kingston MD [STAFF PHYSICIAN] - 06/04/22 3:45 pm Patient Instructions/Handouts: Amoxicillin/Clavulanate Potassium (By mouth), Abscess (GEN) Activity/Diet/Wound Care/Special Instructions: Shower Daily Discharge Disposition: HOME SELF-CARE
[2022-05-30] MEDS ORDERED: VANCOMYCIN TROUGH DUE 1 EACH MISC MISCELLANE ONE (11:00)
== END 2022-05-29 13:50 | disposition home or self-care (01) ==
LOC: EC 01:26 → 6NMEDSUR 04:18
PROVIDERS: ADMIT Family Medicine; ATTEND Family Medicine
DX: N61.1 Abscess of the breast and nipple (principal); E87.6 Hypokalemia; F17.200 Nicotine dependence, unspecified, uncomplicated; E66.9 Obesity, unspecified; Z90.12 Acquired absence of left breast and nipple; Z68.35 Body mass index [BMI] 35.0-35.9, adult; Z80.3 Family history of malignant neoplasm of breast
CPT/HCPCS: 96376 ×2; 96361; 96366 ×5; 96365 ×2; 96367; 96375; 99284; 36415; 80053; 80048 ×2; 83605; 83735; 85025 ×3; 80202; 87040; 87070; 87205; 83036; 76641; G0378 ×3; J3370 ×3; J2270; J0295 ×3; C9113 ×3